=== PATIENT | male | born 1990 | race Caucasian/White ===

== ENCOUNTER → 2021-04-28 07:32 | Outpatient (CLI) | payer OTHER, SELFPAY ==
--- NOTE | ~2021-04-28 | US_ITS ---
EXAMINATION: US retroperitoneal duplex ltd DATE: 04/28/2021 08:17 INDICATION: Essential hypertension TECHNIQUE: Multiple grayscale, color Doppler, and pulsed Doppler images of the kidneys and renal shi brianne were obtained. COMPARISON: None. FINDINGS: The aorta peak systolic velocity is 112 cm/s. The right renal artery peak systolic velocity is 114 cm /s in the proximal segment, 99 cm/s in the mid segment, and 84 cm/s in the distal segment. The left r enal artery peak systolic velocity is 75 cm/s in the proximal segment, 99 cm/s in the mid segment, an d 93 cm/s in the distal segment. IMPRESSION: 1. No Doppler evidence of renal artery stenosis. Reviewed, dictated and finalized at location F. UCTION ASSEMBLY OPERATOR
--- NOTE | ~2021-04-28 | US_ITS ---
EXAMINATION: US right upper quadrant DATE: 04/28/2021 08:17 INDICATION: Elevated liver enzymes TECHNIQUE: Multiple grayscale and Doppler ultrasound images of the abdomen were obtained. COMPARISON: None available FINDINGS: The head and body of the pancreas are normal. The pancreatic tail is obscured by bowel gas. The liver demonstrates increased echogenicity, heterogenous echotexture, and decreased through trans mission. No surface nodularity. Normal hepatopetal flow in the main portal vein. The gallbladder is n ormal with no abnormal wall thickening, pericholecystic fluid or stones. The normal common bile duct measures 5 mm. There was no sonographic Rich sign. IMPRESSION: 1. Diffuse hepatic steatosis. Reviewed, dictated and finalized at location F. LET OR NEWSPAPER DELIVERER
== END ==
PROVIDERS: PCP Internal Medicine; Visit Provider Internal Medicine
DX: I10 Essential (primary) hypertension (principal); R74.8 Abnormal levels of other serum enzymes; K76.0 Fatty (change of) liver, not elsewhere classified
CPT/HCPCS: 76705; 93976

== ENCOUNTER 2023-08-13 19:49 | Emergency (ER) | payer OTHER, SELFPAY ==
--- NOTE | ~2023-08-13 | XR_ITS ---
EXAMINATION: XR chest 1V portable DATE: 08/13/2023 21:16 INDICATION: Cough. Influenza A. TECHNIQUE: frontal view of the chest was obtained. COMPARISON: None FINDINGS: The lungs are clear with no focal airspace opacities, pulmonary edema, pleural effusion or pneumothor ax. The cardiomediastinal silhouette is normal. Visualized bones and soft tissues are unremarkable. IMPRESSION: 1. No acute cardiopulmonary disease. Reviewed, dictated and finalized at location A.
[2023-08-13 19:56] VITALS: BP 157/83; PULSE 67; RESP 16; TEMP 36.8; O2SAT 100
[2023-08-13 20:43] LABS: Influenza A QL RT-PCR Positive (Negative); Influenza B QL RT-PCR Negative (Negative); RSV RNA, RT-PCR Negative (Negative); SARS-CoV-2 RNA PCR Negative (Negative)
[2023-08-13 20:52] VITALS: BP 148/90; PULSE 88; RESP 16; O2SAT 97
--- NOTE | 2023-08-13 20:57 | ED.FEVER ---
HPI - Fever General Chief Complaint: Fever Stated Complaint: fever Time Seen by Provider: 08/13/23 20:30 Source: patient Mode of arrival: ambulatory Limitations: no limitations History of Present Illness HPI Narrative: Patient is a 33-year-old male who presents the ED with report of viral type symptoms. Patient reports he recently traveled to the [facility] and returned home 2 days ago. He went to work this morning, but began feeling ill this afternoon with body aches, fever chills, nausea, headache, cough, sore throat. States he was having trouble controlling his fever at home. Has been taking Tylenol. Does report that they must legs have been ongoing for the last week or so since beginning a statin medication. Denies vomiting, abdominal pain, diarrhea. Denies shortness of breath Related Data Allergies Allergy/AdvReac Type Severity Reaction Status Date / Time lisinopril Allergy Unknown Cough Verified 02/18/20 07:57 olmesartan Allergy Unknown Dyspnea / Verified 02/18/20 07:57 SOB Review of Systems Review of Systems: CONSTITUTIONAL: See HPI. ENT: See HPI. CARDIOVASCULAR: Denies chest pain, palpitations, or edema. RESPIRATORY: See HPI. GASTROINTESTINAL: See HPI. GENITOURINARY: Denies dysuria or hematuria. MUSCULOSKELETAL: Reports myalgia. NEUROLOGIC: See HPI. All systems reviewed & are unremarkable except as noted in HPI and below PMFSH Past Medical History Medical History Essential (primary) hypertension Family History Family History Grandparent Family history of malignant neoplasm Other Diabetes mellitus Social History Social History Smoking status: Never smoker Alcohol intake: current Alcohol use details: 1-2 drinks per night Substance use: never Exam Narrative: GENERAL: Mildly ill appearing, obese with BMI of 33.0, non-toxic, in no acute distress. HEAD: Normocephalic, atraumatic. RESPIRATORY: Airway patent, respirations nonlabored. Clear to auscultation bilaterally, no rales, rhonchi, wheezing. No focal lung sounds. CARDIOVASCULAR: Regular rate and rhythm without murmurs, rubs, or gallops. ABDOMINAL: Soft, no tenderness throughout abdomen, nondistended. Normoactive BS. MUSCULOSKELETAL: Moves all extremities. No gross deformities. SKIN: Warm, dry, normal color. NEURO: A&O X3. Speech clear. PSYCHIATRIC: Appropriate mood and affect. Normal interaction. Course Vital Signs Vital signs: Vital Signs Temperature 98.3 F 08/13/23 19:56 Pulse Rate 67 08/13/23 19:56 Respiratory Rate 16 08/13/23 19:56 Blood Pressure 157/83 H 08/13/23 19:56 Pulse Oximetry 100 08/13/23 19:56 Oxygen Delivery Room Air 08/13/23 19:56 Temperature 98.3 F 08/13/23 19:56 Pulse Rate 88 08/13/23 20:52 Respiratory Rate 16 08/13/23 20:52 Blood Pressure 148/90 H 08/13/23 20:52 Pulse Oximetry 97 08/13/23 20:52 Oxygen Delivery Room Air 08/13/23 19:56 MDM - Fever MDM Narrative Medical decision making narrative: Patient presented to ED with viral symptoms that began today. Vital signs are stable upon arrival. Patient was noted to be febrile upon my evaluation up to 101.8. He did take Tylenol a few hours ago. Given Motrin in the ED. Influenza a testing resulted positive. Consistent with clinical picture. Basic laboratory studies were otherwise unremarkable. Minimal transaminitis, likely reactive. Chest x-ray is clear. Patient will be discharged with Tamiflu, ZofranFarzaneh, advised to continue Tylenol/ibuprofen as needed for muscle aches and fevers. Recommended patient follow-up with primary care doctor for further evaluation and to discuss myalgias related to statin medication. Given strict return precautions. He is in agreement with plan. Feels comfortable wi
[2023-08-13 21:18] LABS: Basophils Percent Auto 0.7 % (0.2-1.2); Eosinophils Absolute Auto 0.2 K/mm3 (0-0.3); Eosinophils Percent Auto 3.5 % (0-4.4); Hematocrit 39.7 % (42.0-52.0); Immature Granulocyte Absolute 0.02 K/mm3 (0.00-0.031); Immature Granulocyte Percent A 0.3 % (0-0.5); Lymphocytes Absolute Auto 0.49 K/mm3 (0.9-3.2); Lymphocytes Percent Auto 8.5 % (18.3-44.2); Mean Corpuscular HGB Conc 35.3 g/dl (32-36); Mean Corpuscular Hemoglobin 31.7 pg (26-34); Mean Corpuscular Volume 89.8 fl (80-100); Mean Platelet Volume 9.1 fl (7.4-10.4); Monocytes Absolute Auto 0.7 K/mm3 (0.1-0.6); Monocytes Percent Auto 12.6 % (2.6-8.5); Neutrophils Absolute Auto 4.3 K/mm3 (1.3-6.7); Neutrophils Percent Auto 74.4 % (45.5-73.1); Platelet Count Result 261 k/mm3 (150-375); Red Blood Count 4.42 M/mm3 (4.6-6.20); Red Cell Distribution Width 12.1 % (11.5-14.5); White Blood Count 5.8 K/mm3 (4.5-10.0)
[2023-08-13] MEDS: IBUPROFEN 600 MG TABLET PO (21:19)
[2023-08-13] MEDS: ONDANSETRON INJ 4 MG/2 ML VIAL IV PUSH (21:19)
[2023-08-13] MEDS: SODIUM CHLORIDE 0.9% IV 1,000 ML 999 ML IV CONT (21:19)
[2023-08-13 21:31] LABS: Alanine Aminotransferase 112 U/L (6-50); Albumin Level 4.7 g/dL (3.5-5.1); Alkaline Phosphatase 78 U/L (38-126); Anion Gap 10 mmol/L (4-12); Aspartate Amino Transferase 90 U/L (17-59); Bilirubin,Total 0.6 mg/dL (0.2-1.3); Blood Urea Nitrogen 14 mg/dL (9-20); Calcium 9.6 mg/dL (8.4-10.2); Carbon Dioxide 23 mmol/L (22-30); Chloride 102 mmol/L (98-107); Estimated CRCL calculation 107 ml/min; Estimated Glomerular Filt Rate > 60; Glucose 124 mg/dL (65-110); Potassium 3.7 mmol/L (3.4-5.0); Sodium 135 mmol/L (137-145)
[2023-08-13 22:11] VITALS: BP 148/75; PULSE 67; RESP 15; TEMP 36.7; O2SAT 99
== END 2023-08-13 22:13 | disposition home or self-care (01) ==
PROVIDERS: Emergency Medicine; Emergency Provider Physician Assistant; PCP Internal Medicine
DX: J10.1 Influenza due to other identified influenza virus with other respiratory manifestations (principal); M79.10 Myalgia, unspecified site; Z20.822 Contact with and (suspected) exposure to COVID-19; I10 Essential (primary) hypertension
CPT/HCPCS: 36415; 71045; 80053; 85025; 87637; 96361; 96374; 99284; A9270; J2405; J7030